=== PATIENT | female | born 1995 | race African-American/Black ===

== ENCOUNTER 2021-12-23 11:00 | Emergency (ER) | payer OTHER, SELFPAY ==
[2021-12-23 11:05] VITALS: BP 157/38; PULSE 105; RESP 18; TEMP 36.7; O2SAT 99; BMI 48.5
--- NOTE | 2021-12-23 11:37 | ED.SKABFB ---
HPI - Skin/Abscess/Foreign Bdy General Chief complaint: Skin/Abscess/Foreign Body Stated complaint: Cyst Time Seen by Provider: 12/23/21 11:37 Source: patient Mode of arrival: ambulatory History of Present Illness HPI narrative: 26-year-old female with 4 days of groin abscess. Patient states she has had an abscess in the same place in the past. She has recently used Torrze. states she had to have the same area drained once in the past no fevers, but it is very painful Related Data Previous Rx's Medication Instructions Recorded oxycodone-acetaminophen 5 mg-325 1 tab PO Q6H PRN #6 tab 12/23/21 mg tablet (Percocet) sulfamethoxazole 800 1 tab PO BID 10 Days #20 tab 12/23/21 mg-trimethoprim 160 mg tablet (Bactrim DS) Allergies Allergy/AdvReac Type Severity Reaction Status Date / Time aspirin [ASA] Allergy Unknown UNKNOWN Verified 12/23/21 11:05 ibuprofen [From MOTRIN] Allergy Unknown UNKNOWN Verified 12/23/21 11:05 shrimp [SHRIMP] Allergy Unknown UNKNOWN Verified 12/23/21 11:05 Review of Systems Constitutional: Constitutional: Denies body ache(s), Denies chills, Denies fatigue, Denies fever(s), Denies headache(s), Denies malaise and Denies weakness Eyes: Eyes: Denies diplopia ENT: Denies vertigo, Denies dizziness, Denies headache(s) and Denies throat swelling Cardiovascular: Cardiovascular: Denies chest pain, Denies syncope, Denies leg edema, Denies lightheadedness, Denies Loss of Consciousness, Denies palpitations and Denies dyspnea Respiratory: Respiratory: Denies chest congestion, Denies cough and Denies dyspnea Gastrointestinal: Gastrointestinal: Denies abdominal pain, Denies hematochezia, Denies constipation, Denies diarrhea and Denies vomiting Musculoskeletal: Musculoskeletal: Reports no additional musculoskeletal complaints Integumentary/Breasts: Skin/Breast: Reports furuncle, Reports rash, Reports skin pain and Reports skin swelling Neurologic: Denies confusion, Denies vertigo, Denies dizziness, Denies syncope, Denies headache(s) and Denies weakness Psychiatric: Psychiatric: Denies anxiety, Denies confusion and Denies depression Endocrine: Endocrine: Denies fatigue and Denies palpitations Allergic/Immunologic: Allergic/Immunologic: Denies throat swelling [facility] Social History Social History Advance Directives: No Advance Directives Information Provided: No Physical Exam Vital Signs: Vital Signs: Last Vital Signs Temp 98.1 F 12/23/21 11:05 Pulse 105 H 12/23/21 11:05 Resp 18 12/23/21 11:05 BP 157/38 H 12/23/21 11:05 Pulse Ox 99 12/23/21 11:05 BMI result Body Mass Index 48.5 Const: General: no acute distress, alert and awake; No confusion Nutritional Appearance: obese Orientation/consciousness: patient oriented x3 and No confusion Limitations: no limitations Eyes: Conjunctivae: conjunctivae normal Pupils: Equal, round and reactive pupils present EOM: EOMs intact bilaterally Neck: Neck: Yes full ROM, Yes no lymphadenopathy and Yes supple Resp: Effort & Inspection: normal respiratory effort and able to speak in complete sentences Auscultation: clear to auscultation bilaterally, no crackles, no rales, no rhonchi and no wheezes Cardio: Rate: regular rate Rhythm: regular rhythm Heart sounds: S1 normal heart sound present and S2 normal heart sound present GI: Inspection: Yes normal to inspection Palpation (GI): Soft to palpation, nontender, no guarding and not rigid Percussion: Yes normal to percussion Auscultation: normal bowel sounds Skin: Other: abscess right vulvar area surrounded by erythema and induration abscess about 1.5 cm in diameter, pointing Neuro: General: patient oriented x3 and No confusion Cranial nerves: Yes Equal, round and reactive pupils present Extrem: General: Yes normal to inspection and Yes full ROM Psych: Appearance: grossly normal Affect: Anxious affect present Attitude: cooperative Thought process: Normal thought process present Course Course Course Narrative: 26-year-old with right vulvar abscess. I and D performed, patient told to return to be seen in 2 days. Bactrim prescribed. Wound culture set. All patient's questions are answered Procedures Abscess I/D Site: other (vulva) Side (if applicable): right Local Anesthetic: lidocaine 1% Amount of anesthesia used (mL): 3 Technique: incised with blade Amount of fluid expressed (mL): 3 Sent for culture/gram staining?: Yes Irrigation: No Packing used?: iodoform Discharge Plan Discharge Clinical Impression: Abscess Patient Disposition: Home, Self-Care Instructions: Abscess Follow-up (ED) Additional Instructions: please leave the packing in the dressing in place. Please keep the dressing clean and dry. Please return to the emergency room in 2 days for follow-up appointment. Please take Bactrim as prescribed. If you have fevers, worsening pain, please return to the emergency room sooner Prescriptions: New sulfamethoxazole-trimethoprim [Bactrim DS] 800-160 mg tablet 1 tab PO BID 10 Days Qty: 20 0RF oxycodone-acetaminophen [Percocet] 5-325 mg tablet 1 tab PO Q6H PRN (Reason: pain) Qty: 6 0RF
[2021-12-23] MEDS: Lidocaine HCl 1 % 20 ML VIAL 10 ML INFILTRATI (11:50)
== END 2021-12-23 12:53 | disposition home or self-care (01) ==
PROVIDERS: Emergency Provider Emergency Medicine
DX: N76.4 Abscess of vulva (principal); Z79.899 Other long term (current) drug therapy
CPT/HCPCS: 56405; 87071; 87205; 99283; 99284

== ENCOUNTER 2021-12-24 15:21 | Emergency (ER) | payer OTHER, SELFPAY ==
[2021-12-24 15:26] VITALS: BP 140/77; PULSE 100; RESP 16; TEMP 36.6; O2SAT 95; BMI 50.1
--- NOTE | 2021-12-24 16:25 | ED_ITS ---
HPI - Skin/Abscess/Foreign Bdy General Chief complaint: Skin/Abscess/Foreign Body Stated complaint: abcess packing Time Seen by Provider: 12/24/21 16:21 Source: patient and RN notes reviewed Mode of arrival: ambulatory Limitations: no limitations History of Present Illness HPI narrative: REcheck of abscess to right suprapubic area. Pt seen yesterday in ED for I&D. Returned today because packing fell out. No other complaints, pt feeling better. MD complaint: abscess/boil Related Data Previous Rx's Medication Instructions Recorded oxycodone-acetaminophen 5 mg-325 1 tab PO Q6H PRN #6 tab 12/23/21 mg tablet (Percocet) sulfamethoxazole 800 1 tab PO BID 10 Days #20 tab 12/23/21 mg-trimethoprim 160 mg tablet (Bactrim DS) Allergies Allergy/AdvReac Type Severity Reaction Status Date / Time aspirin [ASA] Allergy Unknown UNKNOWN Verified 12/23/21 11:05 ibuprofen [From MOTRIN] Allergy Unknown UNKNOWN Verified 12/23/21 11:05 shrimp [SHRIMP] Allergy Unknown UNKNOWN Verified 12/23/21 11:05 Review of Systems Verdana 4l Review of Systems: Verdana 4d Verdana 4d Constitutional : No trauma, No Weight loss, No Fever, No Chills, ENT/Mouth : No Hearing loss, No Ear Pain, No Nasal Congestion, No Sinus Pain, No Hoarseness, No sore throat, No Rhinorrhea, No Swallowing Difficulty Cardiovascular : No ChestChest Pain, No SOB Respiratory : No Cough, No Dyspnea Gastrointestinal : No Nausea, No Vomiting, No Diarrhea, No abdominal Pain, Genitourinary : No Dysuria, No Urinary Frequency, No Hematuria, No Urinary or Bowel Incontinence/retention? Musculoskeletal : no Back pain, No neck pain, No joint stiffness, No joint swelling Skin : No rash, healing abscess suprapubic, no packing present. Neuro : No Weakness, No radiation, No Numbness, No Paresthesias, No headache, no loss of bowel or bladder incontinence Yes all other systems are reviewed and are negative [facility] Past Medical History Attestation statement: The following information was validated with the patient. Social History Social History Advance Directives: No Advance Directives Information Provided: Yes Patient : No Physical Exam Verdana 4l Vital Signs: Verdana 4d Verdana 4d Vital Signs: Verdana 4d Verdana 4Bd Last Vital Signs Verdana 4d Mindi 4d Mindi Lubin 4d Temp 97.9 F 12/24/21 15:26 [employer] New 4d Pulse 100 12/24/21 15:26 [employer] Supervisor 4d Resp 16 12/24/21 15:26 BP 140/77 H 12/24/21 15:26 Pulse Ox 95 12/24/21 15:26 BMI result Body Mass Index 50.1 vital signs have been reviewed as normal and appeared to be correct.? Blood pressure elevated? Heart rate normal.? Respiration rate normal.? Temperature normal.? Oxygen saturation normal. Appearance: Alert. Oriented X3. No acute distress. ? Head: Normal external exam. Normocephalic. Atraumatic.? Eyes: PERRLA. EOMI. Conjunctiva and sclera normal. Eyelids normal. ? ENT: EAC normal. Pharynx normal. Uvula midline. Neck: Normal inspection. Neck supple. Normal ROM. CVS: Normal heart rate and rhythm. Respiratory: No respiratory distress. painless inspiration Abdomen: Soft and nontender. No distention noted.? No organomegaly noted.? No visible injury noted. Back: ?No CVA tenderness.? Full range of motion noted. Skin: Skin warm and dry.?Healing abscess suprapubic, mild edema, no exudate, no packing present. Extremities: No lower extremity edema. ? Extremities exhibit normal range of motion.? Extremities nontender. Normal gait Neuro: Oriented X 3.? No motor deficit noted. No sensory deficit noted. Discharge Plan Discharge Clinical Impression: Abscess of skin or subcutaneous tissue Patient Disposition: Home, Self-Care Instructions: Incision and Drainage (ED) Additional Instructions: The packing is no longer in your abscess. You can shower as normal. You should expect the area to heal over the next 7-10 days. Take antibiotic as previously directed. Return if worse. Prescriptions: No Action sulfamethoxazole-trimethoprim [Bactrim DS] 800-160 mg tablet 1 tab PO BID 10 Days Qty: 20 0RF oxycodone-acetaminophen [Percocet] 5-325 mg tablet 1 tab PO Q6H PRN (Reason: pain) Qty: 6 0RF Referrals: Physician,Unknown J [Primary Care Provider] - 2 days Interventions: ED Discharge Assessment Last Done: 12/24/21 16:34 Discharge Date/Time: 12/24/21 16:35
== END 2021-12-24 16:35 | disposition home or self-care (01) ==
PROVIDERS: Emergency Provider Emergency Medicine
DX: Z48.01 Encounter for change or removal of surgical wound dressing (principal); L02.818 Cutaneous abscess of other sites
CPT/HCPCS: 99282; 99283